=== PATIENT | male | born 1940 | race Caucasian/White ===

== ENCOUNTER → 2020-11-22 | Outpatient (CLI) | payer OTHER ==
--- NOTE | 2020-11-22 14:22 | 2DMMODE ---
[facility] [address] [place] [address] 2 D/M-MODE ECHOCARDIOGRAM Name: CARLOS DYER [id number] Admission: 11/22/20 Attend Phys: Martinez Dykes Discharge: Date of : 36 Report #: [id number] THIS REPORT FOR: cc: Martinez Webb Jeffrey Edwin DO Santiago, Patrick MD [facility] ~ APPROVED REPORT Study performed: 11/22/2020 12:39:38 EXAM: Comprehensive 2D, Doppler, and color-flow Echocardiogram Patient Location: Out-Patient Room #: 2 Status: routine BSA: 2.14 HR: 70 bpm BP: 134/80 mmHg Rhythm: Pacemaker Other Information Study Quality: Good Indications Atrial Fibrillation Pacemaker CAD Hypertension/HDD 2D Dimensions RVDd: 41.57 mm IVSd: 10.17 (7-11mm) LVOT Diam: 20.32 (18-24mm) LVDd: 60.02 mm PWd: 10.45 (7-11mm) Ascending Ao: 34.59 (22-36mm) LVDs: 39.37 (25-40mm) Left Atrium: 48.68 (27-40mm) Aortic Root: 38.26 mm IVC: 27.00 mm Volumes Left Atrial Volume (Systole) Single Plane 4CH: 68.07 mL Single Plane 2CH: 86.86 mL LA ESV Index: 39.00 mL/m2 Aortic Valve AoV Peak Jeanmarie.: 1.33 m/s [facility] [address] [place] [address] 2 D/M-MODE ECHOCARDIOGRAM Name: CARLOS DYER Zahida Room #: REG CL [facility].#: [id number] Admission: 11/22/20 Attend Phys: Martinez Baldwin Discharge: Date of : 36 Report #: [id number] AO Peak Gr.: 7.03 mmHg LVOT Max P.16 mmHg LVOT Max V: 0.89 m/s [place] Vmax: 2.17 cm2 AI Vmax: 3.52 m/s AI [place]: 1.08 m/s2 AI PHT: 944.47 ms Pulmonary Valve PV Peak Jeanmarie.: 1.01 m/s PV Peak Gr.: 4.12 mmHg Tricuspid Valve TR Peak Jeanmarie.: 2.46 m/s TR Peak Gr.: 24.17 mmHg PA Pressure: 34.00 mmHg Left Ventricle Left ventricle is at the upper limits of normal. There is hypokinesis in the apical wall. There is normal left ventricular wall thickness. Left ventricular systolic function is borderline. LVEF is 50%. This study is not technically sufficient to allow evaluation of the LV diastolic function due to atrial fibrillation. Right Ventricle Right ventricle is at the upper limits of normal. The right ventricular systolic function is normal. Pacemaker lead is present in the right ventricle. Atria Left atrium is dilated. Right atrium is dilated. Pacemaker lead is present in the right atrium. Aortic Valve The aortic valve is normal in structure. The Aortic valve is sclerotic. Moderate aortic regurgitation. There is no aortic valvular stenosis. Mitral Valve The mitral valve is normal in structure. Mild mitral regurgitation. No evidence of mitral valve stenosis. Tricuspid Valve The tricuspid valve is normal in structure. There is mild tricuspid regurgitation. Estimated PAP 34 mmHg. There is mild pulmonary hypertension. Pulmonic Valve [facility] [address] [place] [place] [address] 2 D/M-MODE ECHOCARDIOGRAM Name: CARLOS YDER Zahida Room #: REG [facility]#: [id number] Admission: 11/22/20 Attend Phys: Martinez Baldwin Discharge: Date of : 36 Report #: [id number] The pulmonary valve is normal in structure. There is no pulmonic valvular regurgitation. Great Vessels The aortic root is normal in size. IVC is dilated and collapses <50% with inspiration. Pericardium There is no pericardial effusion. <Conclusion> Left ventricular size upper normal/normal wall thickness Ejection fraction 50%, distal septal/apical hypokinesis Right ventricular size upper normal normal wall thickness Mild biatrial enlargement Moderate aortic valve insufficiency Mild mitral valve insufficiency Mild tricuspid valve insufficiency Pulmonary systolic pressure estimated 34 mmHg No pericardial effusion Normal aortic root size <ELECTRONICALLY SIGNED> By: Louie Leslie MD, FACC 11/22/20 142 21 21 Louie Leslie MD, [facility] /INF
== END ==
LOC: CV 13:18
PROVIDERS: ATTEND Chiropractor
DX: I08.3 Combined rheumatic disorders of mitral, aortic and tricuspid valves (principal); I27.20 Pulmonary hypertension, unspecified; I87.8 Other specified disorders of veins; I86.8 Varicose veins of other specified sites; I25.10 Atherosclerotic heart disease of native coronary artery without angina pectoris